=== PATIENT | male | born 1990 | race Caucasian/White ===

== ENCOUNTER 2018-12-13 19:48 | Inpatient (IN) | payer OTHER ==
[~2018-12-13] VITALS: Ht 188 cm; Wt 80.6 kg
[2018-12-13 20:17] VITALS: BP 121/84
[2018-12-13 21:45] LABS: ABSOLUTE NEUTROPHILS 7.7 thou/uL (1.4-8.2); BASOPHILS 0.4 % (0.0-2.0); EOSINOPHILS 3.7 % (0.0-3.0); HEMATOCRIT 42.4 % (42.0-52.0); HEMOGLOBIN 14.6 gm/dL (14.0-18.0); LYMPHOCYTES 18.7 % (24.0-44.0); MCH 32.8 pg (26.0-34.0); MCHC 34.4 g/dL (28.0-37.0); MCV 95.4 fL (80.0-100.0); PLATELET COUNT 205 thou/uL (150-400); POLYS 66.2 % (36.0-66.0); RBC 4.44 mil/uL (4.50-6.00); RDW 14.1 % (10.5-14.5); WBC 11.6 thou/uL (4.0-11.0)
[2018-12-13 21:59] LABS: CALCIUM 9.1 mg/dL (8.5-10.1); CREATININE 1.1 mg/dL (0.7-1.3); POTASSIUM 3.8 mmol/L (3.5-5.1)
[2018-12-13 22:04] LABS: ALBUMIN 4.3 g/dL (3.4-5.0); DIRECT BILIRUBIN 0.1 mg/dL (<0.1-0.3); TOTAL BILIRUBIN 0.5 mg/dL (<0.1-1.0); TOTAL PROTEIN 7.3 g/dL (6.4-8.2)
--- NOTE | 2018-12-13 22:24 | NUR ---
PT HAS BEEN HOMELESS FOR 2 MONTHS, LIVING OUT OF CAR WITH YOUNGER BROTHER
[2018-12-13 22:53] VITALS: BP 121/84
[2018-12-14 00:20] VITALS: BP 138/67
[2018-12-14 03:10] VITALS: BP 114/56
[2018-12-14 05:24] LABS: HEMATOCRIT 41.5 % (42.0-52.0); HEMOGLOBIN 14.1 gm/dL (14.0-18.0); MCH 32.6 pg (26.0-34.0); RBC 4.32 mil/uL (4.50-6.00); WBC 10.2 thou/uL (4.0-11.0)
[2018-12-14 05:39] LABS: ALBUMIN 3.7 g/dL (3.4-5.0); CALCIUM 8.3 mg/dL (8.5-10.1); POTASSIUM 3.7 mmol/L (3.5-5.1); TOTAL BILIRUBIN 0.7 mg/dL (<0.1-1.0); TOTAL PROTEIN 6.7 g/dL (6.4-8.2)
[2018-12-14 07:20] VITALS: BP 130/71
--- NOTE | 2018-12-14 07:36 | NUR ---
PT WAS ADMITTED TO THE UNIT FROM THE ER IN THE COMPANY OF HIS YOUNGER BROTHER IN A STABLE CONDITION.ADMISSION HX,ASSESSMENT AND EDUCATION COMPLETED.PT C/O PAIN ON HIS R FOOT,MANAGED WITH PO AND IV MED.URINAL AT BEDSIDE FOR ELIMINATION.FALL PRECAUTIONS IMPLEMENTED,PT UNSTABLE ON HIS FEET.PT HOMELESS AND LIVES IN HIS TRUCK WITH HIS BROTHER.IVF AND IV ABX ORDERED.PT RESTING ON HIS BED AT THIS TIME.REPORT TO AM NURSE.
[2018-12-14 16:37] VITALS: BP 116/75
[2018-12-14 19:34] VITALS: BP 124/68
[2018-12-15 03:49] LABS: HEMATOCRIT 42.3 % (42.0-52.0); MCHC 33.2 g/dL (28.0-37.0); MCV 99.3 fL (80.0-100.0); RBC 4.26 mil/uL (4.50-6.00); RDW 14.1 % (10.5-14.5); WBC 9.2 thou/uL (4.0-11.0)
[2018-12-15 04:00] VITALS: BP 117/71
--- NOTE | 2018-12-15 07:43 | NUR ---
shift summary: Pt using urinal. When up, uses roller walker to be able to stay off the R foot. Bern increased to 2 q4 for better pain mgt. Denies any nausea or vomiting. Given PRN laxative thro the noc, no BM yet. No s/sx of distress.
[2018-12-15 08:19] VITALS: BP 133/70
--- NOTE | 2018-12-15 18:36 | NUR ---
PT IN STABLE CONDITION THIS SHIFT; NO S/SX OF DISTRESS; PT GIVEN PRN PAIN MEDS FOR C/O PAIN TO R FOOT, PLANTAR AREA, GREAT TOE AREA; ABT GIVEN ORDERED; POC FOLLOWED; PT IS CONCERNED ABOUT BEING ABLE TO LEAVE TOMORROW TO HAVE TAXES PREPARED; PT IS SCHEDULED FOR MRI IN AM; WILL GIVE REPORT TO ONCOMING NURSE
[2018-12-15 21:00] VITALS: BP 129/76
--- NOTE | 2018-12-16 06:15 | NUR ---
ASSESSMENT COMPLETED AT START OF SHIFT.PT C/O PAIN ON HIS R FOOT,MANAGED WITH PO MED.FOOT STILL WARM AND SWOLLEN.PT UP TO THE BR.RSETING ON HIS BED AT THIS TIME.PT LOOKING FORWARD TO BE DC TODAY SO HE CAN GO AND DO HIS TAXES.CALL LIGHT WITHIN REACH.
--- NOTE | 2018-12-16 18:28 | NUR ---
PT IN STABLE CONDITION THIS SHIFT; MRI COMPLETED; DR. IBRAHIMA REID ORDERED ORTHO CONSULT FOR POSSIBLE ASPIRATION OF JOINT; CONSULT PLACED; PT W/BM TODAY; AWAITING ORTHO CONSULT; FOLLOWING POC
[2018-12-16 19:24] VITALS: BP 142/78
--- NOTE | 2018-12-17 04:27 | NUR ---
Assumed pt care at 1900,pt A/OX4.VSS. Up ad elmo,WBAT to right foot.C/o pain LOP 7/10 medicated per EMAR with partial relief reported. Area on dry cans back tender and warm to touch,slightly red with a black puncture site on the plantar.Voiding without difficulties. Dr Henning saw pt at beginning of shift stated he'll do surgery on the foot sometimes in the afternoon today. Pt has been NPO from midnight,consents signed. IVF infusing without a problem via left hand IV.Resting quietly with eyes closed no distress noted,will continue to monitor pt.
[2018-12-17 04:51] VITALS: BP 127/61
[2018-12-17 07:57] VITALS: BP 117/59
--- NOTE | 2018-12-17 09:11 | NUR ---
ASSESMENT COMPLETED. VSS. A/O. PAIN MANAGED BY MEDS ORDERED. NO NOTED SOA. NO NV. UP AD JOSEPH. PLANS FOR SURGERY TODAY. NPO. WILL CONT. TO MONITOR.
--- NOTE | 2018-12-17 10:19 | NUR ---
UPON ENTERING PATIENT'S ROOM THE BED WAS IN AN ELEVATED POSITION, EDUCATED PATIENT ON IMPORTANCE OF KEEPING BED IN LOW POSITION. CONTINUING TO REMIND PATIENT TO KEEP BED IN LOWEST POSITION. PATIENT CONTINUES TO RAISE BED UP.
--- NOTE | 2018-12-17 11:13 | NUR ---
PT IN SURGERY AT THIS TIME.
--- NOTE | 2018-12-17 15:10 | NUR ---
PATIENT COMPLAINS OF RIGHT FOOT PAIN, FOOT IS TENDER, WARM TO TOUCH, SLIGHLTY RED WITH A BLACK PUNCTURE SITE. NPO SINCE MIDNIGHT. PT LEFT THE UNIT AROUND 10:30 FOR THE OPERATING ROOM.
--- NOTE | 2018-12-17 15:22 | NUR ---
I have reviewed and concur with student documentation.
[2018-12-17 16:29] VITALS: BP 142/68
--- NOTE | 2018-12-17 17:09 | NUR ---
PT ADMITTED RELATED TO WOUND FROM METAL NAIL TO FOOT,CELLULITIS. CM REVIEWED CHART AND SPOKE WITH CARE TEAM. CM MET WITH PT AT BEDSIDE THIS DAY. PT IS A&O X4. CM ROLE INTRODUCED. PT INDICATED HE HAD BEEN MUSHROOM HUNTING AND STEPPED ON NAIL. PT INDICATED HE LIVES IN A CAMPER WITH NO STEPS TO ENTER AND NO STEPS INSIDE. 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 PT INDICATED NO DME OR HH HX. PT INDICATED NO PCP. CM TO PROVIDE [facility] PACKET AND NOTIFY [facility] THAT HE WOULD LIKE FOR THEM TO VISIT. CM TO FOLLOW INDICATED WITH DC PLANNING.
[2018-12-17 20:06] VITALS: BP 140/87
[2018-12-18 05:32] LABS: HEMATOCRIT 41.2 % (42.0-52.0); HEMOGLOBIN 14.1 gm/dL (14.0-18.0); MCH 32.6 pg (26.0-34.0); MCHC 34.3 g/dL (28.0-37.0); MCV 95.1 fL (80.0-100.0); RBC 4.33 mil/uL (4.50-6.00); RDW 13.7 % (10.5-14.5); WBC 11.2 thou/uL (4.0-11.0)
--- NOTE | 2018-12-18 05:52 | NUR ---
POST OP I/D OF R FOOT WOUND.PT BEEN UP AD JOSEPH. AMBULATES FAIRLY WELL WITH THE ORTHOPEDIC SHOE. RLE TOES WITH GOOD SENSATION, MOVEMENT AND CAP REFILL.PT GETTING NORCO Q4 PRN FOR PAIN IN SURGICAL SITE. DENIES ANY GI OR DISCOMFORT. AFEBRILE. POST OP DRSG INTACT TO R FOOT.
--- NOTE | 2018-12-18 06:23 | O ---
[facility] [place] [address] [place] [address] OPERATIVE REPORT Name: SCARLETT HUNTER Olya Room #: 422-P ADM IN M.R.#: [id number] Admission: 12/13/18 ������������������ Attend Phys: Perico Toledo MD Discharge: ������������������ Date of : 89 Report #: [id number] THIS REPORT FOR: //name// CC: Perico Kowalski NO PCP DATE OF SERVICE: 12/17/2018 SERVICE: Orthopedics. FACILITY: [facility]. SURGEON: West Henning MD RACE RELATIONS PROFESSOR: None. PREOPERATIVE DIAGNOSIS: Septic arthritis, right first metatarsophalangeal joint. POSTOPERATIVE DIAGNOSIS: Septic arthritis, right first metatarsophalangeal joint. PROCEDURE: Incision and drainage down to the joint of right first MTP joint. COMPLICATIONS: None. DRAINS: None. SPECIMENS: Cultures taken for anaerobic, aerobic and fungal. FINDINGS: Purulent fluid within the first MTP joint. No other signs of soft tissue abscess. HISTORY: The patient is a 28-year-old gentleman, who stepped on a nail and presented to the Emergency Room with pain and swelling. He was treated for cellulitis and had onhly partial clinical resolution of his symptoms. Orthopedics was consulted and there was evidence of septic arthritis. He was indicated for surgical treatment. Risks, benefits, alternatives, and indication of surgery discussed with him in detail. Risks include but not limited to pain, bleeding, infection, injury to nerves or blood vessels, persistent pain despite surgical intervention, recurrence, persistence of infection as well as deterioration of the articular cartilage. Despite the risks, he wished to proceed. He gave full informed consent. [facility] [address] [place] [address] OPERATIVE REPORT Name: SCARLETT HUNTER Room #: 422-P [facility] IN M.R.#: [id number] Admission: 12/13/18 ������������������ Attend Phys: Perico Toledo MD Discharge: ������������������ Date of : 89 Report #: [id number] PROCEDURE IN DETAIL: Right leg was correctly identified as the operative extremity. The patient was then taken to the operating room where general anesthesia was induced. He was padded appropriately. Treatment antibiotics were being administered. Right leg was prepped and draped in standard sterile fashion. Timeout procedure was performed. A longitudinal incision was made over the medial aspect of the forefoot. Full thickness skin flaps were developed and neurovascular structures were protected. 1st MTP joint capsule was incised in line with the skin incision. Upon entry into the capsule, gross purulent fluid was noted to egress from the MTP joint. The wound was carefully visualized. There was no evidence of osteomyelitis or necrosis of the articular cartilage. Blunt exploration was performed within the dorsal and plantar surface of the joint and the wound was then copiously irrigated. Cultures were taken prior to irrigation. After irrigation was completed, the capsulotomy was closed with buried 0 PDS sutures and the skin was closed with 2-0 PDS followed by 3-0 nylon. A sterile forefoot dressing was then applied. The patient was awakened from anesthesia and taken to recovery room in stable condition. No complications. All counts were correct. ��������������������������������������������� <ELECTRONICALLY SIGNED> ���������������������������������������� By: West Henning MD ��������������������������������������������� 12/18/18 [id number] West Henning MD /nt
[2018-12-18 08:30] VITALS: BP 138/78
--- NOTE | 2018-12-18 08:52 | NUR ---
PT A&OX4, AMBULATES SELF IN LEYVA/ROOM. IV INTACT IN R FA INFUSING FLUIDS W/O COMPS. POST OP DRSG C/D/I WITH ORTHO SHOE. TOLERATING PO PAIN MEDS WELL. WILL CONT POC.
--- NOTE | 2018-12-18 11:09 | NUR ---
ORDERS RECEIVIED FOR EVAL AND TREAT. SPOKE WITH Pt WHO STATES HE HAS ALREADY BEEN UP WITHOUT DIFFICULTY AND STATES HE DOES NOT NEED A P.T. EVAL. DISCUSSED WITH NURSING WHO ALSO STATES Pt HAVING NO DIFFICULTY WITH MOBILITY. WILL DEFER FORMAL P.T. EVAL PER Pt REQUEST
--- NOTE | 2018-12-18 14:12 | NUR ---
FAXED FACE SHEET TO [employer] TO HELP WITH MEDICAID APPLICATION.
[2018-12-18 16:08] VITALS: BP 138/78
--- NOTE | 2018-12-18 16:10 | NUR ---
CARE TEAM INDICATED THAT PT IS MEDICALLY STABLE TO DC HOME THIS DAY. ID INDICATED THAT PT WOULD NEED TO HAVE OP INFUSION SERVICES ARRANGED FOR CEFTRIAXONE 2GM IV Q DAY UPON DC. REFERRAL SENT TO THE OP INFUSION CLINIC HERE AT [facility]. PT IS SCHEDUED FOR INFUSION STARTING TOMORROW Sunday12/19/18 AT 9:45 AM AND 10:00 THERAFTER. PT WAS PROVIDED A [facility] PACKET, [employer] DISCOUNT CARD, AND A [employer] ASSISTANCE APPLICATION WAS MAILED TO HIS HOUSE. NO OTHER CM INTERVENTION INDICATED AT THIS TIME. CASE CLOSED.
[2018-12-18] MEDS ORDERED: CIPRO250 M1 PO (16:46)
[2018-12-18] MEDS ORDERED: HYDROCODONE-AP1 EAC6 PO (16:47)
--- NOTE | 2018-12-18 18:14 | NUR ---
DC ORDERS RECEIVED. INSTRUCTIONS OF WOUND CARE, F/U APPOINTMENTS AND SCRIPTS REVIEWED WITH PT. PATIENT WILL RECEIVE IV ANTIBIOTIC DAILY OUT PT IN INFUSION CLINIC STARTING 12/19/18. 22 G IV INTACT IN L FA. PT WALKED HIMSELF OFF UNIT WHEN DC'D, S/O AT HIS SIDE.
== END 2018-12-18 18:11 | disposition home or self-care (01) | DRG 504 ==
LOC: ER 19:48 → 4E 22:28 → EROBS 22:28 → 4E 12-14 00:10
PROVIDERS: Nurse Practitioner; ADMIT Hospitalist
PROC: 0S9M0ZZ Drainage of Right Metatarsal-Phalangeal Joint, Open Approach (ICD-10-PCS; principal; 2018-12-17)
DX: M00.9 Pyogenic arthritis, unspecified (principal); L03.115 Cellulitis of right lower limb; M00.871 Arthritis due to other bacteria, right ankle and foot; F17.210 Nicotine dependence, cigarettes, uncomplicated; D72.829 Elevated white blood cell count, unspecified; Z60.2 Problems related to living alone; Z71.6 Tobacco abuse counseling; Z83.6 Family history of other diseases of the respiratory system; Z23 Encounter for immunization; Z79.899 Other long term (current) drug therapy
CPT/HCPCS: 10084; 50010; 50101; 50386; 56525; 56527; 57091; 62110; 62900; 70005

== ENCOUNTER → 2018-12-19 | Outpatient (CLI) | payer OTHER ==
[~2018-12-19] MED LIST: CIPRO250 M1 PO; HYDROCODONE-AP1 EAC6 PO
[2018-12-19 10:25] VITALS: BP 123/74
--- NOTE | 2018-12-19 10:48 | NUR ---
IN FOR DAILY CEFTRIAXONE INFUSION FOR RIGHT FOOT SEPTIC ARTHRITIS, S/P I&D OF RIGHT INNER SIDE OF FOOT. PATIENT STATED HAD NOT BEEN ABLE TO DIGITAL INTERN CIPRO YET. SPOKE WITH GRETA CORADO AND WILL SUPPLY CIPRO FOR PATIENT. PATIENT ALSO HAVING SEVERE PAIN. STATED WILL GO TO [facility] AND GET HYDROCODONE FILLED. SALINE LOCK TO LEFT FOREARM PATENT. TOLERATED INFUSION WITHOUT INCIDENT. SALINE LOCKED IV AND SECURED WITH GAUZE AND SURGILAST. WENT TO PHARMACY HERE TO DIGITAL INTERN CIPRO. TO RETURN TOMORROW FOR NEXT INFUSION. DISMISSED IN STABLE CONDITION.
== END ==
LOC: OPONC 08:00
DX: M00.9 Pyogenic arthritis, unspecified (principal)
CPT/HCPCS: 95000

== ENCOUNTER → 2018-12-20 | Outpatient (CLI) | payer OTHER ==
[2018-12-20 11:00] VITALS: BP 117/76
--- NOTE | 2018-12-20 11:55 | NUR ---
HERE FOR DAILY IV CEFTRIAXONE. PT REPORTS FOOT FEELING MUCH BETTER, MUCH LESS SWELLING. STATES PICKED UP HIS ORAL CIPRO AND VERBALIZES UNDERSTANDING TO TAKE 3 TABS TWICE DAILY FOR 10 DAYS. ALSO UNDERSTANDS THAT HE WILL SEE DR. REID HERE ON SUNDAY. THOUGHT THE HOSPITAL HAD MADE AN APPT FOR HIM TO SEE DR. JACOBS IN 10 DAYS BUT THIS WAS NOT YET DONE. THIS NURSE CALLED TO MAKE APPT FOR PT WITH DR. JACOBS ON 12/26 AT 1100 IN THEIR [place] OFFICE (ARRIVAL AT 1030 TO COMPLETE NEW PT PAPERWORK). PT VERBALIZES UNDERSTANDING. STATES HIS S.O. IS CHANGING HIS DRESSING AND THEY HAVE ALL THE SUPPLIES. DENIES NOTED FEVER/CHILLS, NO DIARRHEA OR VOMITING. REPORTS EATING WELL. REVIEWED PLAN TO COME IN TO THE ED FOR HIS WEEKEND INFUSIONS. DENIES TRANSPORTATION ISSUES. SALINE LOCK REMOVED UPON COMPLETION OF TODAY'S VISIT FOR SITE ROTATION. DISMISSED IN STABLE CONDITION.
== END ==
LOC: OPONC 07:54
DX: M00.9 Pyogenic arthritis, unspecified (principal)
CPT/HCPCS: 95000

== ENCOUNTER → 2018-12-21 | Outpatient (CLI) | payer OTHER | LOC: OPONC 09:32 | DX: M00.9 Pyogenic arthritis, unspecified (principal) | CPT/HCPCS: 95000 ==

== ENCOUNTER → 2018-12-22 | Outpatient (CLI) | payer OTHER | LOC: OPONC 09:35 | DX: M00.9 Pyogenic arthritis, unspecified (principal); S99.921D Unspecified injury of right foot, subsequent encounter; X58.XXXD Exposure to other specified factors, subsequent encounter | CPT/HCPCS: 95000 ==

== ENCOUNTER → 2018-12-23 | Outpatient (CLI) | payer OTHER ==
[2018-12-23 10:03] LABS: HEMATOCRIT 44.1 % (42.0-52.0); MCH 32.1 pg (26.0-34.0); MCV 94.6 fL (80.0-100.0); RBC 4.67 mil/uL (4.50-6.00); RDW 13.7 % (10.5-14.5); WBC 6.8 thou/uL (4.0-11.0)
[2018-12-23 10:23] LABS: ALBUMIN 4.1 g/dL (3.4-5.0); CALCIUM 9.7 mg/dL (8.5-10.1); CREATININE 0.9 mg/dL (0.7-1.3); POTASSIUM 4.3 mmol/L (3.5-5.1); TOTAL BILIRUBIN 0.2 mg/dL (<0.1-1.0)
--- NOTE | 2018-12-23 15:27 | NUR ---
IN FOR DAILY CEFTRIAXONE INFUSION. DR. REID VISITED. EDEMA AND REDNESS NOTED TO RIGHT FOOT WOUND. SUTURES WELL APPROXIMATED WITH NO DRAINAGE NOTED. DENIED FEVER/CHILLS, DIARRHEA, N/V. STILL WITH #6 PAIN TO RIGHT FOOT. PATIENT STATED HE IS TRYING TO KEEP FOOT ELEVATED. TOLERATED INFUSION WELL WITHOUT INCIDENT. DR. REID WANTS TO CONTINUE IV THROUGH SUNDAY AND THEN WILL START ORAL LEVAQUIN ON SUNDAY. PRESCRIPTION GIVEN TO PATIENT WITH INSTRUCTIONS TO START ON SUNDAY. SALINE LOCKED IV. TO RETURN TOMORROW AT SAME TIME. DISMISSED IN STABLE CONDITION.
== END ==
LOC: OPONC 00:33
PROVIDERS: Specialist
DX: M00.9 Pyogenic arthritis, unspecified (principal); S99.921D Unspecified injury of right foot, subsequent encounter; X58.XXXD Exposure to other specified factors, subsequent encounter; Z72.0 Tobacco use
CPT/HCPCS: 95000

== ENCOUNTER → 2018-12-24 | Outpatient (CLI) | payer OTHER ==
[2018-12-24 09:40] VITALS: BP 121/79
--- NOTE | 2018-12-24 09:43 | NUR ---
HERE FOR DAILY IV CEFTRIAXONE. REPORTS DOING WELL. SPENT MORE TIME ON FOOT YESTERDAY WALKING WHICH CAUSED SOME DISCOMFORT. STATES HE ACCIDENTALLY THREW HIS PAIN MEDS AWAY AND IS OUT. PT ASKED IF HE WOULD CALL HIS SURGEON FOR A NEW SCRIPT. TOLD PT THAT IS THE CORRECT DOCTOR TO ASK BUT INFORMED HIM THAT HE MAY NOT AGREE TO WRITING FOR ADDITIONAL NARCOTICS. PT VERBALIZED UNDERSTANDING. PT STATES THAT HE DID DROP OFF LEVAQUIN SCRIPT AT THE PHARMACY AND PLANS TO PICK THAT UP TOMORROW. VERBALIZES UNDERSTANDING TO START THIS ON SUNDAY. TOLERATED TODAY'S INFUSION WITHOUT INCIDENT, SALINE LOCK STILL PATENT, WRAPPED AND LEFT IN PLACE FOR TOMORROW'S INFUSION. PT DENIES ANY N/V/DIARRHEA, FEVER/CHILLS/SWEATS. DISMISSED IN STABLE CONDITION. WILL RETURN IN THE MORNING.
== END ==
LOC: OPONC 02:31
DX: M00.9 Pyogenic arthritis, unspecified (principal); S99.921D Unspecified injury of right foot, subsequent encounter; X58.XXXD Exposure to other specified factors, subsequent encounter
CPT/HCPCS: 95000

== ENCOUNTER → 2018-12-25 | Outpatient (CLI) | payer OTHER ==
[2018-12-25 10:05] VITALS: BP 118/63
--- NOTE | 2018-12-25 10:43 | NUR ---
HERE FOR DAILY CEFTRIAXONE INFUSION. REPORTS DOING WELL. DENIES N/V/DIARRHEA, FEVER OR CHILLS. CHANGING DRESSING ON FOOT DAILY. STATES SITE LOOKS GOOD. PRESENTLY CAMILO WRAPPED. WEARING WALKING SHOE. SALINE LOCK PATENT, INFUSION COMPLETED WITHOUT INCIDENT. SALINE LOCK LEFT IN PLACE FOR TOMORROW. PT STATES HE HAS NOT YET PICKED UP HIS LEVAQUIN WHICH WILL NEED TO START ON SUNDAY BUT WILL DO SO TODAY OR TOMORROW. CONTINUES TO STAY IN HIS CAM[place] WITH HIS S.O. REMINDED PT ABOUT HIS APPT WITH DR. JACOBS TOMORROW. STATES ABLE TO GET THERE. WILL RETURN EARLIER TOMORROW TO BE ABLE TO MAKE THAT APPT IN THE MORNING.
== END ==
LOC: OPONC 00:49
DX: M00.9 Pyogenic arthritis, unspecified (principal)
CPT/HCPCS: 95000

== ENCOUNTER → 2018-12-26 | Outpatient (CLI) | payer OTHER ==
[2018-12-26 11:01] VITALS: BP 108/80
--- NOTE | 2018-12-26 11:06 | NUR ---
IN FOR DAILY CEFTRIAXONE INFUSION. STATED FEELING WELL. DENIED DIARRHEA, FEVER/CHILLS, N/V. STILL WITH MILD PAIN TO RIGHT FOOT. TOLERATED INFUSION WELL WITHOUT INCIDENT. SALINE LOCK REMOVED PER PATIENT REQUEST. DISMISSED IN STABLE CONDITION. WENT FOR APPT WITH DR. JACOBS.
== END ==
LOC: OPONC 00:28
DX: M00.9 Pyogenic arthritis, unspecified (principal)
CPT/HCPCS: 95000

== ENCOUNTER → 2018-12-27 | Outpatient (CLI) | payer OTHER ==
[2018-12-27 10:10] VITALS: BP 109/54
--- NOTE | 2018-12-27 10:36 | NUR ---
IN FOR LAST DAY OF IV ANTIBIOTICS. REPORTS DOING WELL, FEELING WELL. SAW DR. JACOBS YESTERDAY. PT REPORTS HE WAS PLEASED WITH PROGRESS, REMOVED SUTURES AND SET UP APPT TO RETURN IN 4 WEEKS. PT TOLERATED TODAY'S LAST DOSE OF CEFTRIAXONE WITHOUT INCIDENT. DENIES N/V/DIARRHEA, FEVER/CHILLS. S.O. CONTINUES TO ASSIST WITH DAILY DRESSING CHANGES. TRYING TO OFF LOAD FOOT MUCH POSSIBLE. PT VERBALIZES UNDERSTANDING OF NEED TO START ON ORAL LEVAQUIN DAILY STARTING TOMORROW. SCRIPT IS FILLED AND READY FOR LITIGATION EXAMINER AT THE [facility], CASE MANAGEMENT VOUCHED FOR DRUG. PT GOING DIRECTLY FROM HERE TO PICK THIS UP. DISMISSED IN STABLE CONDITION. SCHEDULED TO RETURN ON SUNDAY TO SEE DR. REID.
== END ==
LOC: OPONC 00:20
DX: M00.9 Pyogenic arthritis, unspecified (principal)
CPT/HCPCS: 95000

== ENCOUNTER → 2018-12-30 | Outpatient (CLI) | payer OTHER ==
[2018-12-30 09:53] VITALS: BP 129/78
[2018-12-30 11:33] LABS: HEMATOCRIT 44.5 % (42.0-52.0); HEMOGLOBIN 15.4 gm/dL (14.0-18.0); MCH 32.2 pg (26.0-34.0); MCHC 34.6 g/dL (28.0-37.0); MCV 93.1 fL (80.0-100.0); RBC 4.78 mil/uL (4.50-6.00); RDW 13.5 % (10.5-14.5); WBC 9.9 thou/uL (4.0-11.0)
--- NOTE | 2018-12-30 11:36 | NUR ---
IN FOR CLINIC VISIT WITH DR. REID. PATIENT STATING INCREASED EDEMA AND REDNESS IN THE LAST FEW DAYS. ON PO LEVAQUIN SINCE SUNDAY. DR. REID VISITED AND ORDERED LABS AND XRAY OF RIGHT FOOT 1ST TOE WHICH WERE DONE. INCISION TO RIGHT INNER FOOT ALONG 1ST TOE WELL APPROXIMATED AND HEALING. SUTURES REMOVED BY SURGEON LAST WEEK. SMALL AMOUNT OF EDEMA AND ERYTHEMA NOTED. PATIENT STATING STILL WITH #6-[address] REID INSTRUCTED PATIENT TO TAKE IBUPROFEN 800 MG THREE TIMES A DAY NEEDED. TO RETURN NEXT SUNDAY TO SEE DR. REID. DISMISSED IN STABLE CONDITION.
[2018-12-30 11:49] LABS: ANION GAP 11 mmol/L (7-16); BUN 13 mg/dL (7-18); CALCIUM 9.5 mg/dL (8.5-10.1); CHLORIDE 101 mmol/L (98-107); CO2 27 mmol/L (21-32); CREATININE 0.9 mg/dL (0.7-1.3); GLUCOSE 94 mg/dL (74-106); POTASSIUM 4.1 mmol/L (3.5-5.1); SODIUM 139 mmol/L (136-145)
== END ==
LOC: OPONC 08:47
PROVIDERS: Specialist
DX: M00.9 Pyogenic arthritis, unspecified (principal)
CPT/HCPCS: 91016